=== PATIENT | male | born 1990 | race Caucasian/White ===

== ENCOUNTER 2019-11-25 14:05 | Emergency (ER) | payer OTHER, BC ==
[~2019-11-25] VITALS: Ht 172.7 cm; Wt 136.5 kg
[2019-11-25 14:46] VITALS: Ht 172.7 cm; Wt 136.5 kg
[2019-11-25 17:15] VITALS: BP 111/72
== END 2019-11-25 18:05 | disposition home or self-care (01) ==
LOC: ED 14:05
DX: R07.89 Other chest pain (principal); V48.5XXA Car driver injured in noncollision transport accident in traffic accident, initial encounter; Y93.I9 Activity, other involving external motion; Y92.411 Interstate highway as the place of occurrence of the external cause; Y99.8 Other external cause status
CPT/HCPCS: Q0092